=== PATIENT | male | born 1940 | race Caucasian/White ===

== ENCOUNTER 2022-03-14 13:23 | Outpatient (CLI) | payer MEDICARE, SELFPAY ==
[2022-03-14 19:50] LABS: Alanine Aminotransferase 23 U/L (6-50); Alkaline Phosphatase 76 U/L (38-126); Anion Gap 11 mmol/L (8-16); Aspartate Amino Transferase 26 U/L (17-59); Bilirubin,Total 0.6 mg/dL (0.2-1.3); Blood Urea Nitrogen 21 mg/dL (9-20); Calcium 8.8 mg/dL (8.4-10.2); Carbon Dioxide 25 mmol/L (22-30); Chloride 106 mmol/L (98-107); Cholesterol 132 mg/dL (0-200); Estimated Glomerular Filt Rate 53; Glucose 112 mg/dL (65-110); HDL Direct 33 mg/dL; Potassium 4.2 mmol/L (3.4-5.0); Sodium 142 mmol/L (137-145); Triglycerides 117 mg/dL (<150)
[2022-03-14 20:02] LABS: LDL Cholesterol Direct 73 mg/dL
[2022-03-14 20:13] LABS: Hemoglobin A1C 5.7 % (<5.7)
[2022-03-15 04:17] LABS: Free T4 Free Thyroxine Reflex 1.54 ng/dL (0.78-2.19)
[2022-03-15 04:56] LABS: Total Triiodothyronine (T3) 0.83 NG/ML (0.97-1.69)
== END 2022-03-14 13:24 | disposition home or self-care (01) ==
LOC: ANHGOSHLAB 13:24
PROVIDERS: PCP Family Medicine; Visit Provider Family Medicine
DX: Z13.228 Encounter for screening for other metabolic disorders (principal); R73.03 Prediabetes; Z13.220 Encounter for screening for lipoid disorders; E05.90 Thyrotoxicosis, unspecified without thyrotoxic crisis or storm
CPT/HCPCS: 36415; 80053; 80061; 83036; 84439; 84443; 84480

== ENCOUNTER 2022-05-15 14:02 | Outpatient (CLI) | payer MEDICARE, SELFPAY ==
[2022-05-15 18:57] LABS: Basophils Absolute Auto 0.1 K/mm3 (0.0-0.1); Basophils Percent Auto 1.5 % (0.2-1.2); Eosinophils Absolute Auto 0.5 K/mm3 (0-0.3); Eosinophils Percent Auto 5.6 % (0-4.4); Hematocrit 45.5 % (42.0-52.0); Hemoglobin 14.6 g/dL (14.0-18.0); Immature Granulocyte Absolute 0.03 K/mm3 (0.00-0.031); Immature Granulocyte Percent A 0.3 % (0-0.5); Lymphocytes Absolute Auto 1.18 K/mm3 (0.9-3.2); Lymphocytes Percent Auto 13.2 % (18.3-44.2); Mean Corpuscular HGB Conc 32.1 g/dl (32-36); Mean Corpuscular Hemoglobin 30.9 pg (26-34); Mean Corpuscular Volume 96.2 fl (80-100); Mean Platelet Volume 11.1 fl (7.4-10.4); Monocytes Absolute Auto 0.7 K/mm3 (0.1-0.6); Monocytes Percent Auto 7.4 % (2.6-8.5); Neutrophils Absolute Auto 6.4 K/mm3 (1.3-6.7); Platelet Count Result 216 k/mm3 (150-375); Red Blood Count 4.73 M/mm3 (4.6-6.20); Red Cell Distribution Width 14.2 % (11.5-14.5); White Blood Count 8.9 K/mm3 (4.5-10.0)
[2022-05-15 20:12] LABS: Total Triiodothyronine (T3) 0.82 NG/ML (0.97-1.69)
== END 2022-05-15 14:03 | disposition home or self-care (01) ==
LOC: ANHGOSHLAB 14:04
PROVIDERS: PCP Family Medicine; Visit Provider Physician Assistant
DX: R06.02 Shortness of breath (principal); E07.9 Disorder of thyroid, unspecified
CPT/HCPCS: 36415; 84443; 84480; 85025

== ENCOUNTER → 2022-05-15 14:18 | Outpatient (CLI) | payer MEDICARE, SELFPAY ==
--- NOTE | ~2022-05-15 | XR_ITS ---
Clinical Indication: Shortness of breath PA and lateral views of the chest: Comparison: None Findings: The lungs are clear, without evidence of focal consolidation or pleural effusion. Cardiome diastinal silhouette is nonenlarged. Evidence of prior median sternotomy. Right shoulder arthroplasty in place. Impression: Clear lungs. Reviewed, dictated and finalized at location . ECT MANAGER RETAIL Impression: Clear lungs.
== END ==
PROVIDERS: PCP Physician Assistant; Visit Provider Physician Assistant
DX: R06.02 Shortness of breath (principal)
CPT/HCPCS: 71046

== ENCOUNTER 2022-09-19 15:10 | Outpatient (CLI) | payer MEDICARE, SELFPAY ==
[2022-09-19 19:50] LABS: Thyroid Stimulating Hormone Reflex 0.976 uIU/mL (0.465-4.68)
== END 2022-09-19 15:11 | disposition home or self-care (01) ==
LOC: ANHGOSHLAB 15:10
PROVIDERS: PCP Family Medicine; Visit Provider Family Medicine
DX: E07.9 Disorder of thyroid, unspecified (principal); Z13.29 Encounter for screening for other suspected endocrine disorder
CPT/HCPCS: 36415; 84443

== ENCOUNTER 2023-07-08 13:42 | Outpatient (CLI) | payer MEDICARE, SELFPAY ==
--- NOTE | ~2023-07-08 | CT_ITS ---
EXAMINATION: CT abdomen pelvis wo/w con DATE: 07/08/2023 14:40 INDICATION: Microscopic hematuria. TECHNIQUE: Computed tomography (CT) of the abdomen and pelvis was performed without and with intraven ous contrast using a total of 130 mL Omnipaque-350 intravenous contrast with a double-bolus technique for simultaneous opacification of the renal parenchyma and renal collecting system. Automated exposu re control and iterative reconstruction technique were employed. The dose-length product was 1349.96 mGy-cm. COMPARISON: None FINDINGS: The visualized portions of the lung bases demonstrate mild atelectasis. No pleural effusion. There is left atrial enlargement of the heart. There are coronary artery calcifications. No pericardial effus ion. There is a moderate-sized sliding hiatal hernia. There is a 6 mm cyst in the liver. The gallblad roseanna is normal. There is a 7 mm hypodense mass in the spleen, likely granulomatous disease. The pancre as and adrenal glands are normal. There are cysts in the kidneys measuring up to 8.6 cm on the left. There is no urolithiasis. The prostate is moderately enlarged. The ureters are not well opacified dis tally, but are normal. The bladder is normal. There is prominent fat in the inguinal canals that may be hernias. There are old healed fractures of left superior and inferior pubic rami. 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 There a re chronic compression fractures of T12 on L1. There is a chronic burst fracture of L4. There is a be nign bone island in L2. There are severe lumbar spondylosis. There are bridging endplate osteophytes at multiple levels in the thoracic spine, consistent with diffuse idiopathic skeletal hyperostosis (D OLIVIA). There is a hemangioma in L1. IMPRESSION: 1. Moderately enlarged prostate. Reviewed, dictated and finalized at location A. MARKETING STRATEGIST
[2023-07-08 14:19] LABS: Estimated Glomerular Filt Rate 58
== END 2023-07-08 13:43 | disposition home or self-care (01) ==
PROVIDERS: PCP Family Medicine; Visit Provider Nurse Practitioner Family
DX: R31.29 Other microscopic hematuria (principal); N40.0 Benign prostatic hyperplasia without lower urinary tract symptoms
CPT/HCPCS: 74178; Q9967

== ENCOUNTER 2024-09-20 13:32 | Outpatient (CLI) | payer MEDICARE, SELFPAY ==
--- OUTSIDE RECORDS SUMMARY | 2024-09-20 14:48 | XMS_ITS | CONTINUITY OF CARE DOCUMENT ---
Author Name john lopez Address Unknown Organization [facility] Address [address] [place] [address] Phone [phone] Care Team Providers Care Milking System Installer Name Role Phone Kyree Cunningham MD Unavailable [phone] ZAIN EDUARDO MD, COLLIN Unavailable [phone] INSURANCE PROVIDERS Payer name Policy type / Coverage type Jerod red alliance party ID [employer]VANTRA [employer] HMO Other [id number]
--- OUTSIDE RECORDS SUMMARY | 2024-09-20 14:48 | XMS_ITS | Continuity of Care Document ---
Author Organization [facility] Address [address] [place] [address] Phone Care Team Providers Care Game Master Name Role Phone Luke Mercer MD Unavailable Unavailable Procedures Procedure Date Office/outpatient visit,[facility] 2006 X-ray exam of knee, 1 or2 views 007 X-ray exam of both knees, standing Advance Directives Directive Yes / No Effective Date File Name No Information Encounters Encounter Description Practice Location Reason(s) For Visit Diagnoses Date Provider Providers Copied on Encounter Office/outpat ient visit,[facility], [address] [address], [place], [place], [id number], [place] tel:[phone] [facility] No Information 7 Ruslan Butler. [address] [facility], [address] [address], [place], [place], [id number] , [place]. tel:[phone] Family History Family Member Type Diagnosis Age At Onset No Information Payers Payer name Insurance type Covered green party ID Authoriza tion(s) No Information Social History Type Description Quantity Date Captured Comments Sex Male Smoking Status No Information Chief Complaint And Reason For Visit No Information Reason For Referral Reason For Referral No Information History Of Present Illness Encounter Date Complaint History Of Prese nt Illness No Information Functional Status Date Functional Assessmen t No Information Instructions Date Instruction Additional Infor mation No Information Assessments Type Assessment Date No Information Patient Care Teams Name Effective Dates (start - stop) Status Members No Information
--- OUTSIDE RECORDS SUMMARY | 2024-09-20 14:48 | XMS_ITS | Clinical Summary ---
Author Organization [facility] Address [address] [place] [address] Care Team Providers Care Crop Duster Name Role Phone Jayme Guerrier Primary Care Provider [phone] Source Comments [facility],non-owned Affiliates and Associated Physician Practices is amultiple site organization consisting of ambulatory clinics and hospital sitesin [place], [place] and [place]. This disclosure is being madepursuant to the Care Everywhere program and may not contain all information available regarding this patient. Last updated 18.[facility] Allergies No known active allergies Medications * Be aware that medications may not be up to date on this document. Alwaysverify current medications with the patient. acetaminophen (Tylenol) 325 MG tablet Take 2 (two) tablets by mouth every 6 hours as needed Maximum allowable Acetaminophen amount = 4 Grams (4000 mg) / 24 hours. 3 Active budesonide-for moterol (Symbicort) 160-4.5 MCG/ACT inhalerIndicat ions:Asthma Inhale 2 (two) puffs by mouth 2 times daily Reasons: Asthma 3 Active levETIRAcetam (Keppra) 500 MG tablet Take 1 (one) tablet by mouth 2 times daily for 7 days 14 tablet 3 Active atorvastatin (Lipitor) 40 MG tablet Take 1 (one) tablet by mouth at bedtime 3 Active eplerenone (Inspra) 25 MG tablet Take 1.5 (one and one-half) tablets by mouth once daily 3 Active lisinopril (Prinivil; Zestril) 40 MG tablet Take 1 (one) tablet by mouth once daily 3 Active carvedilol (Coreg) 25 MG tablet Take 2 (two) tablets by mouth 2 times daily with morning and evening meal 3 Active polyethylene glycol 3350 (Miralax) 17 g packet Take 17 (seventeen) g by mouth once daily 3 Active senna (Senokot Extra Strength) 17.2 MG Take 17.2 mg by mouth once daily 3 Active tamsulosin (Flomax) 0.4 MG capsule Take 1 (one) capsule by mouth once daily At the same time every day after a meal. 3 Active levothyroxine (Synthroid) 150 MCG tablet Take 1 (one) tablet by mouth once daily 3 Active Active Problems Problem Noted Date Diagnosed Date Cervicalgia 01/13/2023 Chest pain 01/13/2023 Impaired mobility and ADLs 01/13/2023 Acute pain due to trauma 01/13/2023 Fall, initial encounter 01/12/2023 Periorbital ecchymosis of left eye, initial enco unter 01/12/2023 Intracranial hemorrhage on r ight side following injury, without loss of consciousness, initial encounter 01/12/2023 Social History Tobacco Use Types Packs/Day Years Used Date Smoking Tobacco: Never Assessed Sex and Gender Information Value Date Recorded Sex Assigned at Not on file Legal Sex Male 11:53 AM CDT Gender Identity Not on file Sexual Orientation Not on file Last Filed Vital Signs Vital Sign Reading Time Taken Comments Blood Pressure 156/103 01/13/2023 12:02 PM CDT Wander Garcia was notiifed of this bp Pulse 121 01/13/2023 12:02 PM CDT Temperature 37.2 C (98.9 F) 01/13/2023 12:02 PM CDT Respiratory Rate 18 01/13/2023 6:18 AM CDT Oxygen Saturation 94% 01/13/2023 12: 02 PM CDT Inhaled Oxygen Concentration - - Weight 72.6 kg (160 lb) 01/11/2023 11:4 5 PM CDT Height 172.7 cm (5' 8 ) 01/11/2023 11:4 5 PM CDT Body Mass Index 24.33 01/11/2023 11:45 PM CDT Plan of Treatment Health Maintenance Due Date Last Done Comments DTAP/TDAP/TD VACCINES (1 - Tdap) 1960 PNEUMOCOCCAL VACCINE 50+ (1 of 1 - PCV) 1991 ZOSTER VACCINE (1 of 2) 1991 Respiratory Syncytial Virus (RSV) Vaccine Pt: or over 60 yrs (1 - 1-dose 75+ series) 2016 COVID-19 VACCINE (1 - 2023-2 5 season) 2024 DEPRESSION SCREENING 05/25/2024 MEDICARE AWV CALENDAR YEAR 2024 INFLUENZA VACCINE (Season Ended) 2025 HEPATITIS B VACCINE Aged Out No longe r eligible based on patient's age to complete this topic HIB VACCINE Aged Out No longer eligi ble based on patient's age to complete this topic HPV VACCINE Aged Out No longer eligi ble based on patient's age to complete this topic MENINGOCOCCAL (Group B) VACC INE SHARED DECISION-MAKING Aged Out No longer eligibl e based on patient's age to complete this topic MENINGOCOCCAL GROUPS A/C/Y/W VACCINE Aged Out No longer eligible b ased on patient's age to complete this topic Insurance HUMAN MEDICARE ADV PFFS Advance Directives * Full Code (Latest Code Status on File) Date Activated Date Inactivated Comments 01/12/2023 2:19 AM 01/13/2023 6:45 PM Care Teams Crop Duster Relationship Specialty Start Date End Date Jayme Guerrier DO [address] [place], [place] [id number] PCP - General Family Medicine 01/13/23
[2024-09-20 20:52] LABS: Alanine Aminotransferase 20 U/L (6-50); Albumin Level 3.9 g/dL (3.5-5.1); Alkaline Phosphatase 70 U/L (38-126); Anion Gap 10 mmol/L (4-12); Aspartate Amino Transferase 26 U/L (17-59); Bilirubin,Total 0.8 mg/dL (0.2-1.3); Blood Urea Nitrogen 22 mg/dL (9-20); Calcium 8.8 mg/dL (8.4-10.2); Carbon Dioxide 28 mmol/L (22-30); Chloride 105 mmol/L (98-107); Estimated Glomerular Filt Rate > 60; Glucose 99 mg/dL (65-110); Potassium 4.1 mmol/L (3.4-5.0); Sodium 143 mmol/L (137-145)
[2024-09-20 21:04] LABS: Free T4 Free Thyroxine 1.48 ng/dL (0.78-2.19)
== END 2024-09-20 13:33 | disposition home or self-care (01) ==
LOC: ANHGOSHLAB 13:33
PROVIDERS: PCP Nurse Practitioner Family; Visit Provider Nurse Practitioner Family
DX: E03.9 Hypothyroidism, unspecified (principal); Z13.228 Encounter for screening for other metabolic disorders
CPT/HCPCS: 36415; 80053; 84439; 84443

== ENCOUNTER 2024-10-26 13:40 | Outpatient (CLI) | payer MEDICARE, SELFPAY ==
--- OUTSIDE RECORDS SUMMARY | 2024-10-26 13:46 | XMS_ITS | Continuity of Care Document ---
Author Organization [facility] Address [address] [place] [address] Phone Care Team Providers Care Sales Support Specialist Name Role Phone Luke Mercer MD Unavailable Unavailable Procedures Procedure Date Office/outpatient visit,[facility] 2006 X-ray exam of knee, 1 or2 views 007 X-ray exam of both knees, standing Advance Directives Directive Yes / No Effective Date File Name No Information Encounters Encounter Description Practice Location Reason(s) For Visit Diagnoses Date Provider Providers Copied on Encounter Office/outpat ient visit,[facility], [address] [address], [place], [place], [id number], [place] tel:[phone] [facility] No Information 7 Ruslan Butler. [address] [address], [place], [place], [id number] , [place]. tel:[phone] Family History Family Member Type Diagnosis Age At Onset No Information Payers Payer name Insurance type Covered alliance party ID Authoriza tion(s) No Information Social [...]
--- OUTSIDE RECORDS SUMMARY | 2024-10-26 13:46 | XMS_ITS | Clinical Summary ---
Author Organization [facility] Address [address] [place] [address] Care Team Providers Care Vehicle Body Sander Name Role Phone Jayme Guerrier Primary Care Provider [phone] Source Comments [facility],non-owned Affiliates and Associated Physician Practices is amultiple site organization consisting of ambulatory clinics and hospital sitesin [place], [place]. This disclosure is being madepursuant to the Care Everywhere program and may not contain all information available regarding this patient. Last updated 18.[facility] Allergies No known active allergies Medications * [...] 5 PM CDT Height 172.7 cm (5' 8) 01/11/2023 11:4 5 PM CDT Body Mass [...] 2:19 AM 01/13/2023 6:45 PM Care Teams Vehicle Body Sander Relationship Specialty Start Date End Date Jayme Guerrier DO [address] [place], [place] [id number] PCP - General Family Medicine 01/13/23
--- NOTE | 2024-10-26 15:50 | WPDSIXMINUTE ---
Six Minute Walk Procedure Procedure Performed Pulmonary Stress Test (6 min walk) Six Minute Walk Six Minute Walk: This is a 6 minute walk test. The test was performed and interpreted in accordance with the 2014 ERS/ATS task force guidelines. Of note, patient used a wheeled walker and the test was stopped at 4 minutes due to knee pain. Findings: The patient's resting room air oxygen saturation measured by pulse oximetry was 95%, the heart rate was 80 bpm, and the modified Raisa dyspnea score was 1. Patient ambulated for 122 meters and oxygen saturation remained 94 to 96%. At the end of the study the heart rate was 112 bpm and the modified Raisa dyspnea score was 3. The patient did not qualify for supplemental oxygen at rest or with ambulation. There are no prior studies for comparison.
--- NOTE | 2024-10-26 16:09 | WPDPFTINT ---
PFT Procedure Performed PFT Procedure Performed Plethysmography (Lung Vol) Diffusing Cap (DLCO) Flow Vol Loop Spirometry w/o Bronchodil PFT Interpretation This is a pulmonary function test with spirometry, plethysmography and diffusing capacity. The test was performed and results interpreted in accordance with the 2019 and 2005 ATS/ERS Task Force guidelines respectively using the Global Lung Function Initiative-2012 reference equations. Patient demonstrated good effort and cooperation. Reproducibility criteria were met. The quality of the spirometry maneuver was Grade A. Findings: Spirometry: The contour the inspiratory and expiratory flow tracing are normal. The FVC is 3.10 L, 87% predicted. The FEV1 is 2.07 L, 79% predicted. The FEV1: FVC ratio 67%. Plethysmography: The total lung capacity is 6.37 L, 95% predicted. The functional residual capacity is 3.04 L, 84% predicted. The residual volume is 3.02 L, 116% predicted. Diffusing capacity: The diffusing capacity unadjusted for hemoglobin and carboxyhemoglobin is 14.0, 62% predicted. The diffusing capacity adjusted for alveolar volume is 2.81, 77% predicted. Impression: The spirometry is normal without evidence of an obstructive abnormality. The lung volumes are normal. The diffusing capacity unadjusted for hemoglobin and carboxyhemoglobin is mildly decreased and normalizes when adjusted for alveolar volume. There are no prior studies for comparison
== END 2024-10-26 13:41 | disposition home or self-care (01) ==
PROVIDERS: PCP Nurse Practitioner Family; Visit Provider Nurse Practitioner Family
DX: R06.02 Shortness of breath (principal)
CPT/HCPCS: 94375; 94618; 94726; 94729

== ENCOUNTER 2024-11-29 19:53 | Outpatient (NON) | payer MEDICARE, SELFPAY ==
--- OUTSIDE RECORDS SUMMARY | 2024-11-29 19:56 | XMS_ITS | Continuity of Care Document ---
Author Organization [facility] Address [address] [place] [address] Phone Care Team Providers Care Hospitality Recruiter Name Role Phone Luke Mercer MD Unavailable Unavailable Procedures Procedure Date Office/outpatient visit,[facility] 2006 X-ray exam of knee, 1 or2 views 007 X-ray exam of both knees, standing Advance Directives Directive Yes / No Effective Date File Name No Information Encounters Encounter Description Practice Location Reason(s) For Visit Diagnoses Date Provider Providers Copied on Encounter Office/outpat ient visit,[facility], [address] [address], [place], [place], [id number], [place] tel:[phone] [facility] No Information 7 Ruslan Butler. [address] [address], [place], [place], [id number] , [place]. tel:[phone] Family History Family Member Type Diagnosis Age At Onset No Information Payers Payer name Insurance type Covered republican ID Authoriza tion(s) No Information Social History [...]
--- OUTSIDE RECORDS SUMMARY | 2024-11-29 19:56 | XMS_ITS | Clinical Summary ---
Author Organization [facility] Address [address] [place] [address] Care Team Providers Care Control Manager Name Role Phone Jayme Guerrier Primary Care Provider [phone] Source Comments [facility],non-owned Affiliates and Associated Physician Practices is amultiple site organization consisting of ambulatory clinics and hospital sitesin [place], [place], [place]. This disclosure is being madepursuant to the Care Everywhere program and may not contain all information available regarding this patient. Last updated 18.[facility] Allergies No known active allergies Medications * [...] MEDICARE AWV CALENDAR YEAR 2024 INFLUENZA VACCINE (#1) 2025 HEPATITIS B VACCINE Aged Out No [...] 2:19 AM 01/13/2023 6:45 PM Care Teams Control Manager Relationship Specialty Start Date End Date Jayme Guerrier DO [address] [place], [place] [phone] PCP - General Family Medicine 01/13/23
== END 2024-11-29 19:54 | disposition home or self-care (01) ==
LOC: ANHLAB 19:55
PROVIDERS: PCP Nurse Practitioner Family; Visit Provider Nurse Practitioner Family
DX: R31.9 Hematuria, unspecified (principal)
CPT/HCPCS: 87086